=== PATIENT | male | born 1970 | race Caucasian/White ===

== ENCOUNTER 2018-08-24 03:17 | Emergency (ER) | payer OTHER ==
[~2018-08-24] VITALS: Ht 170.2 cm; Wt 83.9 kg
[2018-08-24 04:02] LABS: CALCIUM 9.4 mg/dL (8.5-10.1); CREATININE 1.4 mg/dL (0.7-1.3); POTASSIUM 3.3 mmol/L (3.5-5.1)
[2018-08-24 04:06] LABS: ABSOLUTE NEUTROPHILS 6.6 thou/uL (1.4-8.2); BASOPHILS 0.4 % (0.0-2.0); EOSINOPHILS 0.9 % (0.0-3.0); HEMATOCRIT 41.2 % (42.0-52.0); HEMOGLOBIN 14.4 gm/dL (14.0-18.0); LYMPHOCYTES 26.9 % (24.0-44.0); MCH 30.3 pg (26.0-34.0); MCHC 34.9 g/dL (28.0-37.0); MCV 86.8 fL (80.0-100.0); MONOCYTES 6.1 % (1.0-8.0); PLATELET COUNT 239 thou/uL (150-400); POLYS 65.7 % (36.0-66.0); RBC 4.75 mil/uL (4.50-6.00); RDW 12.5 % (10.5-14.5); WBC 10.1 thou/uL (4.0-11.0)
[2018-08-24 04:08] LABS: ALBUMIN 3.9 g/dL (3.4-5.0); DIRECT BILIRUBIN 0.2 mg/dL (<0.1-0.3); TOTAL BILIRUBIN 0.6 mg/dL (<0.1-1.0); TOTAL PROTEIN 7.3 g/dL (6.4-8.2)
[2018-08-24] MEDS ORDERED: OMEPRAZOLE 20 M20 M1 PO (04:24)
[2018-08-24] MEDS ORDERED: ZOFRAN ODT4 MG PO (04:24)
[2018-08-24 04:41] VITALS: BP 136/70
== END 2018-08-24 04:41 | disposition home or self-care (01) ==
LOC: ER 03:17
PROVIDERS: Emergency Medicine
DX: R10.13 Epigastric pain (principal); R11.0 Nausea; K21.9 Gastro-esophageal reflux disease without esophagitis; Z88.0 Allergy status to penicillin

== ENCOUNTER 2020-10-25 19:58 | Emergency (ER) | payer OTHER ==
[~2020-10-25] VITALS: Ht 172.7 cm; Wt 81.7 kg
[~2020-10-25 19:58] MED LIST: OMEPRAZOLE 20 M20 M1 PO; ZOFRAN ODT4 MG PO
[2020-10-25] MEDS ORDERED: ACID REDUCER20 MG PO (20:08)
[2020-10-25 21:14] VITALS: BP 139/75
== END 2020-10-25 21:16 | disposition left against medical advice (07) ==
LOC: ER 19:58
DX: R10.10 Upper abdominal pain, unspecified (principal); Z53.21 Procedure and treatment not carried out due to patient leaving prior to being seen by health care provider